=== PATIENT | male | born 1960 | race Caucasian/White ===

== ENCOUNTER 2016-05-30 15:36 | Outpatient (CLI) | payer OTHER ==
--- NOTE | 2016-05-30 17:47 | DIAGNOSTIC IMAGING REPORT ---
PROCEDURE: CT ABDOMEN/PELVIS W/O CONTRAST INDICATION: Follow-up right adrenal nodule and right femoral artery aneurysm. TECHNIQUE: Noncontrast axial images with sagittal and coronal reformations. Intravenous contrast was not utilized due to history of possible contrast reaction (reported gout episodes with shellfish or iodine substances) COMPARISON: Comparison is made to CT abdomen pelvis on 11/09/2015. FINDINGS: ABDOMEN: There has been no change in a 4.2 cm ovoid right adrenal nodule with lipomatous and soft tissue (2.7 cm) components. Left adrenal gland is normal. Right kidney is of normal size (11.6 cm) with a 3 cm upper pole simple cyst. Left kidney is normal (11.6 cm). There are moderate calcified atheromatous changes abdominal aorta with mild aneurysmal dilation of the mid abdominal aorta (2.9 cm - - no change) There is diastases of the rectus muscles with right upper and left lower periumbilical hernias containing nondilated bowel. Gallbladder, liver, spleen, and pancreas are normal. Bowel pattern is normal. Moderate degenerative changes of the lower lumbar spine. 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 Postoperative changes of the bowel and sigmoid colon (surgical mesh). Mild to moderate enlargement prostate (4.6 cm). IMPRESSION: 1. There is a stable 4.2 cm right adrenal mass consistent with a benign adrenal myelolipoma. No evidence of underlying abnormality, and no further follow-up is required. 2. Moderate calcified atheromatous changes of the abdominal aorta with small stable 2.9 cm lower abdominal aortic aneurysm. 3. 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 4. Diastases of the rectus abdominous muscles with two periumbilical hernias containing nondilated small bowel. 5. Mild to moderate enlargement prostate (4.6 cm). 6. Postoperative changes of the small bowel and sigmoid colon. All CT scans at this facility use dose modulation, iterative reconstruction, and/or weight-based dosing when appropriate to reduce radiation dose to as low as reasonably achievable.
== END 2016-05-30 23:00 | disposition home or self-care (01) ==
LOC: CT SRH 15:36
DX: I72.4 Aneurysm of artery of lower extremity (principal); M62.08 Separation of muscle (nontraumatic), other site; N40.0 Benign prostatic hyperplasia without lower urinary tract symptoms